=== PATIENT | female | born 1955 | race Caucasian/White ===

== ENCOUNTER → 2023-02-15 12:43 | Outpatient (BNVA) | payer OTHER, SELFPAY | PROVIDERS: PCP Internal Medicine; Visit Provider Physician Assistant Surgical | DX: Z13.89 Encounter for screening for other disorder (principal) ==

== ENCOUNTER → 2023-03-01 15:36 | Outpatient (BNVA) | payer OTHER, SELFPAY | PROVIDERS: PCP Internal Medicine; Visit Provider Physician Assistant Surgical | DX: Z13.89 Encounter for screening for other disorder (principal) ==

== ENCOUNTER → 2023-04-05 15:26 | Outpatient (BNVA) | payer OTHER, SELFPAY | PROVIDERS: PCP Internal Medicine; Visit Provider Dietitian, Registered | DX: E66.3 Overweight (principal); Z68.25 Body mass index [BMI] 25.0-25.9, adult | CPT/HCPCS: 97802 ==

== ENCOUNTER 2023-05-08 23:05 | Emergency (ER) | payer OTHER, SELFPAY ==
--- NOTE | ~2023-05-08 | XR_ITS ---
EXAMINATION: XR CHEST CLINICAL INFORMATION: Shortness of breath. COMPARISON: None available. TECHNIQUE: 2 views of the chest were obtained. FINDINGS: Normal appearance of the cardiomediastinal silhouette. Mild streaky opacities in the left lower lobe favoring to represent subsegmental atelectasis. Otherwise, clear lungs. No pleural effusion or pneumothorax. Thoracic spondylosis. No acute osseous abnormalities. XR/XR chest 2V IMPRESSION: Mild subsegmental atelectasis in the left lower lobe. Otherwise, clear lungs. No pleural effusion or pneumothorax.
[2023-05-08 23:15] VITALS: BP 126/71; PULSE 70; RESP 16; TEMP 36.4; O2SAT 98
--- NOTE | 2023-05-08 23:15 | MHC.EDTECH ---
PATIENT CAME VIA EMS ,VITALS SIGN TAKEN ,PT WAS HOOKED UP TO RECRUITMENT ASSISTANT ,PT WAS CHANGE INTO HOSPITAL ATTIRE .
[2023-05-08 23:16] VITALS: BP 152/76; PULSE 80; O2SAT 100
--- NOTE | 2023-05-08 23:28 | ECG_ITS ---
Test Reason : SOB Blood Pressure : / mmHG Vent. Rate : 063 BPM Atrial Rate : 063 BPM P-R Int : 140 ms QRS Dur : 080 ms QT Int : 438 ms P-R-T Axes : 024 -07 016 degrees QTc Int : 448 ms Normal sinus rhythm Possible Inferior infarct , age undetermined Cannot rule out Anterior infarct , age undetermined Abnormal ECG No previous ECGs available Referred By: Courtney Leach Electronically Signed By:BETH SINHA MD
[2023-05-09] VITALS: BMI 28.1
--- NOTE | 2023-05-09 00:49 | ED_ITS ---
HPI - General Adult General Chief complaint: Headache Stated complaint: sob Time Seen by Provider: 05/09/23 00:09 Source: patient Mode of arrival: EMS Limitations: no limitations History of Present Illness HPI narrative: Patient comes to the emergency room complaining of experiencing generalized whole body discomfort/burning sensation approximately 3 hours prior to arrival and anxiety. Patient states that she laid down, symptoms started and lasted a few minutes. Patient states that the same sensation happened again while she was here in the ED. Denies chest pain, states she had intermittent shortness of breath. Then patient stated that she had numbness and tingling from head to toe. At this time, patient has no pain or shortness of breath, patient states that she feels tired. Patient denies any tonic-clonic activity Related Data Home Medications Medication Instructions Recorded Confirmed paroxetine HCl 10 mg tablet (Paxil) 10 mg PO DAILY 02/15/23 propranolol 80 mg capsule,24 80 mg PO BEDTIME 02/15/23 hr,extended release Allergies Allergy/AdvReac Type Severity Reaction Status Date / Time Sulfa (Sulfonamide Allergy Mild Hives Verified 03/01/23 15:41 Antibiotics) STRAWBERRIES Allergy Mild Hives Uncoded 02/15/23 12:52 Review of Systems Review of Systems: Constitutional : No Weight loss, No Fever, No Chills, No Night Sweats, No Fatigue, complaining of generalized malaise Malaise ENT/Mouth : No Hearing loss, No Ear Pain, No Nasal Congestion, No Sinus Pain, No Hoarseness, No sore throat, No Rhinorrhea, No Swallowing Difficulty Eyes: No Eye Pain, No Swelling, No Redness, No Foreign Body, No Discharge, No Vision Changes Cardiovascular : No Chest Pain, No SOB, No Dyspnea on Exertion, No Orthopnea, No Edema, No Palpitations Respiratory : No Cough, No Sputum, No Wheezing, No Smoke Exposure, complaining intermittent shortness breath Gastrointestinal : No Nausea, No Vomiting, No Diarrhea, No Constipation, No abdominal Pain, No Hematochezia, No Melena Genitourinary : no irregular bleeding, No Dysuria, No Urinary Frequency, No Hematuria, No Urinary Incontinence, No Urgency, No Flank Pain, No Urinary Flow Changes, No Hesitancy Musculoskeletal : No joint pain, No Myalgias, No Joint Swelling Skin : No Skin Lesions, No rash Neuro : No Weakness, No Numbness, No Paresthesias, No Loss of Consciousness, No Dizziness, complaining of Headache Psych : No Anxiety/Panic, No Depression, No SI/HI/AH/VH, No Social Issues, Heme/Lymph: No Bruising, No Bleeding,No Lymphadenopathy Endocrine : No Polyuria, No Polydipsia, No Temperature Intolerance [facility] Past Medical History Medical History (Updated 05/09/23 @ 01:56 by Blank Hussein MD) Anxiety Surgical History No pertinent past surgical history Family History Family History Mother Hypertension High cholesterol Kidney disease Father Cancer Brother Fatty liver Arthritis Sister Arthritis Sister No problems noted. Son No problems noted. Son No problems noted. Social History Social History Alcohol intake: current Alcohol intake frequency: other Patient Tobacco Use Status: Never used Tobacco Smoked in Last 30 Days: No Use of substances other than those prescribed or required for medical reasons: No Advance Directives: No Advance Directives Information Provided: No Physical Exam ED Vital Signs: Vital Signs - 24 hr 05/08/23 23:15 05/09/23 01:32 Temperature 97.5 F 98.2 F Pulse Rate 70 67 Respiratory Rate 16 13 Blood Pressure 126/71 116/54 L Pulse Oximetry 98 98 Oxygen Delivery Method Room Air Room Air BMI result Body Mass Index 28.1 Const Other: Appearance: Alert. Oriented X3. No acute distress. Eyes: Pupils equal, round and reactive to light. ENT: Pharynx normal. Neck: Normal inspection. Neck supple. No lymph nodes noted. No crepitus CVS: Normal heart rate and rhythm. Pulses normal. Normal S1 and S2 Respiratory: No respiratory distress. Breath sounds normal. No Wheezing. No rales Abdomen: Soft and nontender. No rigidity. No distention. Skin: Skin warm and dry. Normal skin color. Normal skin turgor. Extremities: No lower extremity edema. No Lacerations. No Rash Neuro: Oriented X 3. No motor deficit. No sensory deficit. Moving all extremities. No slurred speech. CN 2 through 12 grossly intact Psych: calm, cooperative, normal affect Course Course Course Narrative: -of patient's labs and imaging pending -so far it seems that patient experienced a panic attack Medical Decision Making Medical Decision Making [facility] Narrative: -my interpretation of chest x-ray: No pneumonia -my interpretation of EKG: Normal sinus rhythm, rate 63, no ST segment depression or elevation, no T-wave inversion, QTC 440. -patient remains asymptomatic in the emergency room, hematology and chemistry unremarkable a troponin and BNP within normal limits. -patient was ambulated in the emergency room, oxygen saturation 97% on room air. COVID test negative -wells score criteria for pulmonary embolism is 0 -likely patient had anxiety/panic attack. Cardiac/pulmonary etiology for her symptoms is unlikely Lab Data [facility] Lab Attestation statement: I reviewed the patient's lab results. 05/09/23 00:47 05/09/23 00:47 Labs: Lab Results 05/09/23 05/09/23 05/09/23 Range/Units 00:47 00:47 00:47 WBC 8.0 (4.8-10.8) X10*3/uL RBC 4.92 (4.20-5.50) X10*6/uL Hgb 14.5 (12.0-16.0) g/dl Hct 43.7 (37.0-47.0) % MCV 88.8 (80.0-98.0) fL MCH 29.5 (27.0-33.0) pg MCHC 33.2 (31.0-35.0) g/dl RDW 12.7 (11.0-16.0) % Plt Count 220 (160-400) X10*3/uL MPV 10.5 (9.4-12.3) fL Immature Gran % (Auto) 0.9 H (0.0-0.4) % Neut % (Auto) 68.1 (45-73) % Lymph % (Auto) 22.5 (20-40) % [place] % (Auto) 7.0 (2-11) % Eos % (Auto) 1.1 (0-4) % Baso % (Auto) 0.4 (0-2) % Lymph # (Auto) 1.8 (1.2-4.9) X10*3/uL [place] # (Auto) 0.6 (0.1-1.2) X10*3/uL Eos # (Auto) 0.1 (0.0-0.4) X10*3/uL Baso # (Auto) 0.0 (0.0-0.2) X10*3/uL Abs Immat Gran (auto) 0.07 H (0.00-0.03) X10*3/uL Absolute Neuts (auto) 5.4 (2.0-8.3) x10*3/uL Absolute Nucleated RBC 0.000 (0.0-0.012) X10*3/uL Nucleated RBC % (auto) 0.0 (0.0-0.2) /100WBC VBG pH (7.32-7.43) VBG pCO2 mmHg VBG pO2 mmHg VBG HCO3 (22-26) mmol/L VBG O2 Saturation % VBG Base Excess mmol/L Sodium 142 (135-145) mmol/L Potassium 3.7 (3.3-5.1) mmol/L Chloride 104 (96-108) mmol/L Carbon Dioxide 24 (22-29) mmol/L Anion Gap 18 (12-20) BUN 23 H (9-16) mg/dL Creatinine 0.76 (0.5-1.4) mg/dL Estim Creat Clear Calc 69.2 Estimated GFR > 60 Random Glucose 109 (60-115) mg/dL Calcium 10.5 H (8.4-10.2) mg/dL Magnesium 2.2 (1.6-2.6) mg/dL Total Bilirubin 0.6 (0.0-1.0) mg/dL AST 19 (5-31) U/L ALT 15 (0-31) U/L Alkaline Phosphatase 68 (39-117) U/L Troponin I High Sens < 2.7 (<3.5-17.0) ng/L B-Natriuretic Peptide (<100) pg/mL Total Protein 8.2 H (6.5-8.0) g/dL Albumin 4.5 (3.5-5.0) g/dL COVID-19 ([facility]) (Negative) COVID-19 Clin Com 05/09/23 05/09/23 05/09/23 Range/Units 00:47 00:51 00:53 WBC (4.8-10.8) X10*3/uL RBC (4.20-5.50) X10*6/uL Hgb (12.0-16.0) g/dl Hct (37.0-47.0) % MCV (80.0-98.0) fL MCH (27.0-33.0) pg MCHC (31.0-35.0) g/dl RDW (11.0-16.0) % Plt Count (160-400) X10*3/uL MPV (9.4-12.3) fL Immature Gran % (Auto) (0.0-0.4) % Neut % (Auto) (45-73) % Lymph % (Auto) (20-40) % [place] % (Auto) (2-11) % Eos % (Auto) (0-4) % Baso % (Auto) (0-2) % Lymph # (Auto) (1.2-4.9) X10*3/uL [place] # (Auto) (0.1-1.2) X10*3/uL Eos # (Auto) (0.0-0.4) X10*3/uL Baso # (Auto) (0.0-0.2) X10*3/uL Abs Immat Gran (auto) (0.00-0.03) X10*3/uL Absolute Neuts (auto) (2.0-8.3) x10*3/uL Absolute Nucleated RBC (0.0-0.012) X10*3/uL Nucleated RBC % (auto) (0.0-0.2) /100WBC VBG pH 7.46 H (7.32-7.43) VBG pCO2 43 mmHg VBG pO2 34 mmHg VBG HCO3 31 H (22-26) mmol/L VBG O2 Saturation 57.0 % VBG Base Excess 6.4 mmol/L Sodium (135-145) mmol/L Potassium (3.3-5.1) mmol/L Chloride (96-108) mmol/L Carbon Dioxide (22-29) mmol/L Anion Gap (12-20) BUN (9-16) mg/dL Creatinine (0.5-1.4) mg/dL Estim Creat Clear Calc Estimated GFR Random Glucose (60-115) mg/dL Calcium (8.4-10.2) mg/dL Magnesium (1.6-2.6) mg/dL Total Bilirubin (0.0-1.0) mg/dL AST (5-31) U/L ALT (0-31) U/L Alkaline Phosphatase (39-117) U/L Troponin I High Sens (<3.5-17.0) ng/L B-Natriuretic Peptide 47 (<100) pg/mL Total Protein (6.5-8.0) g/dL Albumin (3.5-5.0) g/dL COVID-19 ([facility]) Negative (Negative) COVID-19 Clin Com See Note Radiology Impression Discussion of test interpretation with radiology: I have reviewed the radiologist's reading. Radiologist Impression: FINDINGS: Normal appearance of the cardiomediastinal silhouette. Mild streaky opacities in the left lower lobe favoring to represent subsegmental atelectasis. Otherwise, clear lungs. No pleural effusion or pneumothorax. Thoracic spondylosis. No acute osseous abnormalities. XR/XR chest 2V IMPRESSION: Mild subsegmental atelectasis in the left lower lobe. Otherwise, clear lungs. No pleural effusion or pneumothorax. ? Discharge Plan Discharge Clinical Impression: Dyspnea, Anxiety Patient Disposition: Home, Self-Care Instructions: Dyspnea (ED), Anxiety (ED) Additional Instructions: Please follow-up with your primary care physician tomorrow. If you have any worsening or new symptoms, please return to the emergency room or call 911 Prescriptions: No Action paroxetine HCl [Paxil] 10 mg tablet 10 mg PO DAILY propranolol 80 mg capsule,extended release 24hr 80 mg PO BEDTIME
[2023-05-09 00:53] LABS: MANUAL DIFF FLAG NO
[2023-05-09 00:55] LABS: Basophils Percent Auto 0.4 % (0-2); Eosinophils Absolute Auto 0.1 X10*3/uL (0.0-0.4); Eosinophils Percent Auto 1.1 % (0-4); Hematocrit 43.7 % (37.0-47.0); Hemoglobin 14.5 g/dl (12.0-16.0); Imm Gran Abs Auto 0.07 X10*3/uL (0.00-0.03); Imm Gran Pct Auto 0.9 % (0.0-0.4); Lymphocytes Absolute Auto 1.8 X10*3/uL (1.2-4.9); Lymphocytes Percent Auto 22.5 % (20-40); Mean Corpuscular HGB Conc 33.2 g/dl (31.0-35.0); Mean Corpuscular Hemoglobin 29.5 pg (27.0-33.0); Mean Corpuscular Volume 88.8 fL (80.0-98.0); Mean Platelet Volume 10.5 fL (9.4-12.3); Monocytes Absolute Auto 0.6 X10*3/uL (0.1-1.2); Neutrophils Absolute Auto 5.4 x10*3/uL (2.0-8.3); Neutrophils Percent Auto 68.1 % (45-73); Platelet Count 220 X10*3/uL (160-400); Red Blood Count 4.92 X10*6/uL (4.20-5.50); Red Cell Distribution Width 12.7 % (11.0-16.0)
[2023-05-09 00:57] LABS: Venous Blood Gas Refer to POC result
[2023-05-09 00:58] LABS: VBG Base Excess 6.4 mmol/L; VBG HCO3 31 mmol/L (22-26); VBG pCO2 43 mmHg; VBG pH 7.46 (7.32-7.43); VBG pO2 34 mmHg
--- NOTE | 2023-05-09 01:07 | MHC.EDTECH ---
EKG and labs drawn. VSS stable family in room with patient. Patient appears calm
[2023-05-09 01:09] LABS: Alanine Aminotransferase 15 U/L (0-31); Albumin Level 4.5 g/dL (3.5-5.0); Alkaline Phosphatase 68 U/L (39-117); Anion Gap 18 (12-20); Aspartate Amino Transferase 19 U/L (5-31); Bilirubin Total 0.6 mg/dL (0.0-1.0); Blood Urea Nitrogen 23 mg/dL (9-16); Calcium 10.5 mg/dL (8.4-10.2); Carbon Dioxide 24 mmol/L (22-29); Chloride 104 mmol/L (96-108); Creatinine Clr Calc Pharmacy 69.2; Estimated Glomerular Filt Rate > 60; Glucose Random 109 mg/dL (60-115); Magnesium 2.2 mg/dL (1.6-2.6); Potassium 3.7 mmol/L (3.3-5.1); Sodium 142 mmol/L (135-145); Total Protein 8.2 g/dL (6.5-8.0)
[2023-05-09 01:11] LABS: COVID-19 Test Negative (Negative); IDNOW Serial# BCCEAD1C
[2023-05-09 01:15] LABS: Troponin-I High Sensitivity < 2.7 ng/L (<3.5-17.0)
[2023-05-09 01:32] VITALS: BP 116/54; PULSE 67; RESP 13; TEMP 36.8; O2SAT 98
[2023-05-09 01:49] LABS: B Type Natriuretic Peptide 47 pg/mL (<100)
== END 2023-05-09 02:04 | disposition home or self-care (01) ==
PROVIDERS: Physician Assistant Medical; Emergency Provider Emergency Medicine; PCP Internal Medicine
DX: F41.9 Anxiety disorder, unspecified (principal); R06.00 Dyspnea, unspecified; Z20.822 Contact with and (suspected) exposure to COVID-19; R06.02 Shortness of breath; Z79.899 Other long term (current) drug therapy
CPT/HCPCS: 71046; 80053; 82803; 83735; 83880; 84484; 85025; 87635; 93005; 99283; 99285

== ENCOUNTER 2023-05-31 10:57 | Outpatient (AMB) | payer OTHER, SELFPAY ==
--- NOTE | 2023-05-31 10:58 | MHC.OFFVISWM ---
Intake VS Expanded 05/31/23 11:04 Height 5 ft 2.5 in Weight 150 lb 3.2 oz BMI 27.0 BP 111/64 Blood Pressure Location Lt brachial Blood Pressure Position Sitting Pulse 63 Pulse Source Pulse Oximeter Temp 96.6 F L Temperature Source Temporal Artery Scan Pulse Oximetry 98 Oxygen Delivery Method Room Air Body Fat 64.4 Body Fat Percentage 42.9 Free Fat Mass 85.8 Muscle Mass 81.4 Visceral Mass 11.0 Water Mass 60.4 BMR 1,206 Intake Visit Reasons: MWL follow up Allergies Sulfa (Sulfonamide Antibiotics) Allergy (Mild, Verified 05/31/23 11:02) Hives STRAWBERRIES Allergy (Mild, Uncoded 02/15/23 12:52) Hives Medication List - Last Reconciled 05/31/23 by YARELY Peralta paroxetine HCl (Paxil) 10 mg PO DAILY propranolol ER 80 mg PO BEDTIME HPI HPI Comments History of Present Illness Details Pt presents in followup for MWL. Visit #3. Starting weight: 167 Weight at last visit: 156 Total weight change: -16.8lbs Current meal plan: Breakfast: ? Fit crunch protein bar lunch: 26g core power dinner 3oz protein and veg occasionally a snack at night 8pm cheese stick or celery with PB Pt reports she does not always follow the plan especially on the weekends. But usually meets her protein goal. Exercise: walking 15 minutes after work.? 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 [facility] Medical History (Updated 05/10/23 @ 00:05 by Chad Nuno) Anxiety Surgical History No pertinent past surgical history Family History Mother Hypertension High cholesterol Kidney disease Father Cancer Brother Fatty liver Arthritis Sister Arthritis Sister No problems noted. Son No problems noted. Son No problems noted. Social History Alcohol intake: current Alcohol intake frequency: other Patient Tobacco Use Status: Never used Tobacco Physical Exam Vital Signs: Last Vital Signs Temp 96.6 F L 05/31/23 11:04 Pulse 63 05/31/23 11:04 BP 111/64 07/10/23 11:04 Pulse Ox 98 05/31/23 11:04 Oxygen Delivery Method Room Air 05/31/23 11:04 BMI result Body Mass Index 27.0 Assessment & Plan Assessment & Plan (1) Obesity: Code(s): E66.9 - Obesity, unspecified (2) Anxiety: Code(s): F41.9 - Anxiety disorder, unspecified Plan Pt will continue same meal plan. She finds it sustainable while still being able to have some indulgences. She continues to progress with weight loss and we discussed that foods are not supposed to be off-limits or bad but she can balance occasional off-plan foods (by being mindful of frequency of them and portion sizes) while ensuring she meets her protein goals. Also recommended strength training to be incorporated into her exercise routine as she has had some muscle loss in review of [place]. Reminded pt to have labs drawn. RTC 1 month. Patient is overweight and is not considered stable at this time. I spent a total of 30 minutes reviewing/updating records, examining the patient and counseling the patient on weight management as detailed above. Coding Level of Care Code Est Pt Level 4 (20133) Diagnoses Obesity E66.9 Anxiety F41.9
[2023-05-31 11:04] VITALS: BP 111/64; PULSE 63; TEMP 35.9; O2SAT 98; BMI 27.0
== END 2023-05-31 11:31 | disposition home or self-care (01) ==
PROVIDERS: PCP Internal Medicine; Visit Provider Physician Assistant Surgical
DX: E66.3 Overweight (principal); Z68.27 Body mass index [BMI] 27.0-27.9, adult; F41.9 Anxiety disorder, unspecified
CPT/HCPCS: 99214

== ENCOUNTER → 2023-05-31 10:57 | Outpatient (BNVA) | payer OTHER, SELFPAY | PROVIDERS: PCP Internal Medicine; Visit Provider Physician Assistant Surgical ==

== ENCOUNTER 2023-07-02 07:34 | Outpatient (REF) | payer OTHER, SELFPAY ==
[2023-07-02 07:54] LABS: MANUAL DIFF FLAG NO
[2023-07-02 08:13] LABS: Basophils Percent Auto 0.4 % (0-2); Eosinophils Absolute Auto 0.1 X10*3/uL (0.0-0.4); Eosinophils Percent Auto 1.6 % (0-4); Hemoglobin 14.1 g/dl (12.0-16.0); Imm Gran Abs Auto 0.03 X10*3/uL (0.00-0.03); Imm Gran Pct Auto 0.6 % (0.0-0.4); Lymphocytes Absolute Auto 1.2 X10*3/uL (1.2-4.9); Lymphocytes Percent Auto 24.3 % (20-40); Mean Corpuscular HGB Conc 32.8 g/dl (31.0-35.0); Mean Corpuscular Hemoglobin 30.1 pg (27.0-33.0); Mean Corpuscular Volume 91.7 fL (80.0-98.0); Mean Platelet Volume 10.3 fL (9.4-12.3); Monocytes Absolute Auto 0.4 X10*3/uL (0.1-1.2); Monocytes Percent Auto 8.2 % (2-11); Neutrophils Absolute Auto 3.3 x10*3/uL (2.0-8.3); Neutrophils Percent Auto 64.9 % (45-73); Platelet Count 236 X10*3/uL (160-400); Red Blood Count 4.69 X10*6/uL (4.20-5.50); Red Cell Distribution Width 12.8 % (11.0-16.0); White Blood Count 5.1 X10*3/uL (4.8-10.8)
[2023-07-02 08:52] LABS: Estimated Average Glucose 100 mg/dL; Hemoglobin A1c % 5.1 %
[2023-07-02 08:58] LABS: Alanine Aminotransferase 12 U/L (0-31); Albumin Level 4.2 g/dL (3.5-5.0); Alkaline Phosphatase 66 U/L (39-117); Anion Gap 13 (12-20); Aspartate Amino Transferase 16 U/L (5-31); Bilirubin Total 0.8 mg/dL (0.0-1.0); Blood Urea Nitrogen 18 mg/dL (9-16); C Reactive Protein 0.25 mg/dL (< or = 0.50); Calcium 9.9 mg/dL (8.4-10.2); Carbon Dioxide 25 mmol/L (22-29); Chloride 107 mmol/L (96-108); Cholesterol 198 mg/dL; Estimated Glomerular Filt Rate > 60; Glucose Random 103 mg/dL (60-115); HDL Cholesterol 58 mg/dL; Iron 85 mcg/dL (30-160); LDL Cholesterol Calculated 125 mg/dl; Percent Iron Saturation 29 % (15-50); Potassium 4.3 mmol/L (3.3-5.1); Sodium 141 mmol/L (135-145); Total Iron Binding Capacity 298 mcg/dL (228-428); Total Protein 7.6 g/dL (6.5-8.0); Triglycerides 75 mg/dL; Unsaturated Iron Binding 213 ug/dL
[2023-07-02 09:15] LABS: Ferritin 116 ng/mL (10-250); Insulin 5 uU/mL (2-29); TSH reflex Free T4 2.44 uIU/mL (0.32-4.0); Vitamin D 25-OH Total 53.9 ng/mL (>30)
[2023-07-02 09:24] LABS: Vitamin B12 374 pg/mL (200-900)
[2023-07-05 12:04] LABS: Calcium (PTHI) 9.7 mg/dL (8.6-10.4); PTHI 63 pg/mL (16-77)
[2023-07-06 12:59] LABS: Zinc 72 mcg/dL (60-130)
[2023-07-08 14:49] LABS: Vitamin B1 10 nmol/L (8-30)
[2023-07-08 17:28] LABS: Vitamin A 49 mcg/dL (38-98)
== END 2023-07-02 07:35 | disposition home or self-care (01) ==
LOC: HO.LAB 07:34
PROVIDERS: PCP Internal Medicine; Visit Provider Physician Assistant Surgical
DX: E66.9 Obesity, unspecified (principal); E63.9 Nutritional deficiency, unspecified
CPT/HCPCS: 36415; 80053; 80061; 82306; 82607; 82728; 82746; 83036; 83525; 83540; 83970; 84425; 84443; 84590; 84630; 85025; 86140

== ENCOUNTER 2023-08-26 13:01 | Outpatient (AMB) | payer OTHER, SELFPAY ==
--- NOTE | 2023-08-26 13:07 | MHC.OFFVISWM ---
Intake VS Expanded 08/26/23 13:19 BP 128/67 Blood Pressure Location Rt brachial Blood Pressure Position Sitting Pulse 70 Pulse Source Pulse Oximeter Temp 96.1 F L Temperature Source Tympanic Pulse Oximetry 97 Oxygen Delivery Method Room Air Height 5 ft 2.5 in Weight 140 lb 9.6 oz BMI 25.3 Body Fat % 40.0 Body Fat Mass 56.2 Fat Free Mass 84.2 Visceral Fat Rating 9.0 Body Water % 42.2 Body Water Mass 59.4 Muscle Mass/Score 79.8 Basal Metabolic Rate/Score 1,175 Intake Visit Reasons: MWL follow up Allergies Sulfa (Sulfonamide Antibiotics) Allergy (Mild, Verified 08/26/23 13:27) Hives STRAWBERRIES Allergy (Mild, Uncoded 08/26/23 13:27) Hives Medication List - Last Reconciled 08/26/23 by YARELY Peralta paroxetine HCl (Paxil) 10 mg PO DAILY propranolol ER 80 mg PO BEDTIME HPI HPI Comments History of Present Illness Details Pt presents in followup for MWL. Visit #4. Since last visit her brother so she feels overwhelmed, shocked. Usually eating is her coping mechanism but did better than in the past since she is in this program. Was difficult to fit in time to exercise as she has been organizing her brother's old home and dealing with probate. Son's wedding is this weekend. Starting weight: 167 Weight at last visit: 150.2 Total weight change: 36.4 Current meal plan: Breakfast: ? Fit crunch protein bar lunch: 26g core power- only drinks half most days, or will have portion of tuna dinner 3oz protein and veg occasionally a snack at night 8pm cheese stick or celery with PB, lately watermelon Exercise: walking 15 minutes after work.? 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 [facility] Medical History (Updated 08/26/23 @ 13:26 by YARELY Peralta) Anxiety Surgical History No pertinent past surgical history Family History Mother Hypertension High cholesterol Kidney disease Father Cancer Brother Fatty liver Arthritis Sister Arthritis Sister No problems noted. Son No problems noted. Son No problems noted. Social History Alcohol intake: current Alcohol intake frequency: other Patient Tobacco Use Status: Never used Tobacco Assessment & Plan Assessment & Plan (1) Anxiety: Code(s): F41.9 - Anxiety disorder, unspecified (2) Overweight: Code(s): E66.3 - Overweight Plan No changes to meal plan or exercise regimen today. Labs reviewed. RTC 1 month. Pt will call for appt. Coding Level of Care Code Est Pt Level 4 (29440) Diagnoses Anxiety F41.9 Overweight E66.3
[2023-08-26 13:19] VITALS: BP 128/67; PULSE 70; TEMP 35.6; O2SAT 97; BMI 25.3
== END 2023-08-26 13:37 | disposition home or self-care (01) ==
PROVIDERS: PCP Internal Medicine; Visit Provider Physician Assistant Surgical
DX: E66.3 Overweight (principal); Z68.25 Body mass index [BMI] 25.0-25.9, adult; F41.9 Anxiety disorder, unspecified
CPT/HCPCS: 99213

== ENCOUNTER → 2023-08-26 13:01 | Outpatient (BNVA) | payer OTHER, SELFPAY | PROVIDERS: PCP Internal Medicine; Visit Provider Physician Assistant Surgical ==